=== PATIENT | male | born 1985 | race Two or more races ===

== ENCOUNTER 2021-02-17 09:48 | Emergency (ER) | payer OTHER ==
[2021-02-17 10:22] LABS: HEMOGLOBIN 15.3 gm/dl (14.0-17.5); RED BLOOD COUNT 4.98 M/UL (4.20-5.50); WHITE BLOOD COUNT 5.9 K/UL (4.5-11.0)
[2021-02-17 10:53] LABS: BUN/CREATININE RATIO 11 (0-10)
[2021-02-17] MEDS ORDERED: PROTONIX40 MG PO (12:43)
== END 2021-02-17 12:48 | disposition home or self-care (01) ==
LOC: ER1 09:48
PROVIDERS: Emergency Medicine
DX: R13.10 Dysphagia, unspecified (principal)
CPT/HCPCS: 71045; 80053; 82550; 82553; 83874; 84484; 85025; 93005; 96374; 99284; C9113

== ENCOUNTER → 2021-02-23 | Day surgery (SDC) | payer OTHER ==
[~2021-02-23] MED LIST: PROTONIX40 MG PO
== END | disposition home or self-care (01) ==
LOC: OR 07:30
DX: K21.00 Gastro-esophageal reflux disease with esophagitis, without bleeding (principal); K31.9 Disease of stomach and duodenum, unspecified; E66.8 Other obesity; Z68.34 Body mass index [BMI] 34.0-34.9, adult; Z79.899 Other long term (current) drug therapy
CPT/HCPCS: J2704; J7040

== ENCOUNTER → 2021-07-15 | Outpatient (CLI) | payer OTHER | LOC: RAD 07:32 | DX: R13.14 Dysphagia, pharyngoesophageal phase (principal) | CPT/HCPCS: 74221 ==